=== PATIENT | female | born 1970 | race Caucasian/White ===

== ENCOUNTER 2019-01-06 11:21 | Observation (INO) | payer OTHER ==
[2019-01-06] MEDS ORDERED: VALIUM 10 MG/2 ML SYRINGE IV ONE (11:46)
[2019-01-06] MEDS ORDERED: VALIUM 10 MG/2 ML SYRINGE ONE (11:54)
[2019-01-06] MEDS ORDERED: Sodium Chloride 0.9% 1000 ML 1,000 ML ONE (11:54)
[2019-01-06] MEDS: Sodium Chloride 0.9% 1000 ML 1,000 ML IV SCH ×2 (11:55→23:10)
--- NOTE | 2019-01-06 11:57 | ERPHSYRPT ---
- History of Present Illness Time Seen by Provider: 01/06/19 11:23 Source: patient Exam Limitations: no limitations Patient Subjective Stated Complaint: Shortness of breath intermittent x 6 days Physician History: This's a 48 yr old pt. with known h/o PE, not on any blood thinners who presents to ED with episodes of epigastric chest pain with SOB and palpitations that was first noticed on wednesday01/01/2019 - She states that on wednesday she noticed a rapid heart beat associated with SOB and pt. states she went pale - this lasted a few minutes after which the patient felt fine. 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 - was on coumadin- but was non-compliant with her blood work hence it was discontinued- was not placed on any other blood thinners - reports hysterectomy - also reports episode of diarrhoea 2 nights ago followed by decreased oral intake Timing/Duration: day(s) (), gradual onset Activities at Onset: none Quality: burning Location: central, epigastric Chest Pain Radiation: no radiation Severity of Pain-Max: moderate Severity of Pain-Current: moderate Modifying Factors: Improves With: nothing Nitro Today/Relief: no nitro taken today Aspirin Treatment Today: no aspirin today Associated Symptoms: nausea, shortness of breath, heartburn Prior Chest Pain/Cardiac Workup: no prior chest pain, pulmonary embolism Allergies/Adverse Reactions: cephalexin Allergy (Verified 01/06/19 11:53) cefuroxime axetil [From Ceftin] Adverse Reaction (Verified 01/06/19 11:53) vancomycin Adverse Reaction (Verified 01/06/19 11:53) Home Medications: Carvedilol 12.5 mg [Coreg 12.5 mg] 2 tab PO HS 07/03/15 [History] Oxycodone HCl/Acetaminophen [Percocet 10-325 mg Tablet] 1 each PO Q6H PRN PRN [History] Cyclobenzaprine HCl 10 mg [Flexeril 10 MG] 10 mg PO HS 07/31/15 [History] Duloxetine HCl [Cymbalta] 60 mg PO BID 10/22/15 [History] Hydroxyzine HCl 25 mg [Atarax 25 mg] 1 tab PO HS PRN 01/06/19 [History] Pregabalin [Lyrica 100Mg] 200 mg PO BID 01/06/19 [History] - Review of Systems Constitutional: Fatigue, Weakness Eyes: No Symptoms Ears, Nose, & Throat: No Symptoms Respiratory: Dyspnea, Dyspnea on Exertion (ARANA) Cardiac: Chest Pain Abdominal/Gastrointestinal: Nausea Genitourinary Symptoms: No Symptoms Musculoskeletal: No Symptoms Skin: No Symptoms Neurological: Dizziness Psychological: No Symptoms Endocrine: No Symptoms Hematologic/Lymphatic: No Symptoms Immunological/Allergic: No Symptoms All Other Systems: Reviewed and Negative - Past Medical History Pertinent Past Medical History: No Neurological History: TIA ENT History: No Pertinent History Cardiac History: Hypertension Respiratory History: No Pertinent History Endocrine Medical History: No Pertinent History Musculoskeletal History: Other GI Medical History: Gallbladder Disease, Ulcer History: No Pertinent History Psycho-Social History: Anxiety, Panic Disorder Female Reproductive Disorders: Fibroids Other Medical History: PT. REPORTS SHE MAY HAVE HAD TIAS, PANIC ATTACKS, HTN; PT. REPORTS SHE HAS CP AT TIME THAT HER PCP THINKS IS RELATED TO HTN; PT. REPORTS HAVING C-SPINE AND L-SPINE FUSION IN 2000 - Past Surgical History Past Surgical History: Yes Neuro Surgical History: No Pertinent History Cardiac: No Pertinent History Respiratory: No Pertinent History Gastrointestinal: No Pertinent History Genitourinary: No Pertinent History Musculoskeletal: Orthopedic Surgery Female Surgical History: Hysterectomy Other Surgical History: Back surgery; Neck fracture repair; tonsillectomy; adenoidnectomy - Social History Smoking Status: Former smoker Exposure to second hand smoke: No Drug Use: none - Female History Hx Now: No - Nursing Vital Signs Nursing Vital Signs: Initial Vital Signs Temperature 98.5 F 01/06/19 11:30 Pulse Rate 138 H 01/06/19 11:30 Respiratory Rate 22 01/06/19 11:30 Blood Pressure 129/100 01/06/19 11:30 O2 Sat by Pulse Oximetry 100 01/06/19 11:30 Pain Scale Pain Intensity 2 - Physical Exam General Appearance: mild distress Eye Exam: PERRL/EOMI Ears, Nose, Throat Exam: normal ENT inspection Neck Exam: normal inspection Respiratory Exam: normal breath sounds, lungs clear, airway intact Cardiovascular Exam: normal heart sounds, normal peripheral pulses, tachycardia Gastrointestinal/Abdomen Exam: soft, normal bowel sounds Pelvic Exam: not done Rectal Exam: deferred Back Exam: normal inspection Extremity Exam: normal inspection Neurologic Exam: alert, oriented x 3, cooperative, marine rigger II-XII nml as tested Skin Exam: normal color Lymphatic Exam: No adenopathy SpO2 Interpretation: normal O2 Delivery: Room Air Ordered Tests: Active Orders 24 hr Category Date Time Status Code Status Order ROUTINE Care 01/06/19 15:06 Active EKG-ER Only STAT Care 01/06/19 11:43 Completed IV Care Q6H Care 01/06/19 15:06 Active IV Insertion STAT Care 01/06/19 11:[address] in Observation ROUTINE Care 01/06/19 15:06 Active CHEST 1 VIEW (PORTABLE) Stat Exams 01/06/19 11:44 Completed CHEST WITH CONTRAST [CT] Stat Exams 01/06/19 12:20 Completed ARTERIAL BLOOD GASES Stat Lab 01/06/19 12:14 Completed CBC W DIFF Stat Lab 01/06/19 11:38 Completed CMP Stat Lab 01/06/19 11:38 Completed D-DIMER QUANTITATION Stat Lab 01/06/19 11:38 Completed MAGNESIUM Stat Lab 01/06/19 11:38 Completed NT PRO BNP Stat Lab 01/06/19 11:38 Completed TROPONIN Q3H Lab 01/06/19 11:38 Completed TROPONIN Q3H Lab 01/06/19 14:45 Completed TROPONIN Q3H Lab 01/06/19 18:39 Completed TROPONIN Q3H Lab 01/06/19 20:45 Ordered TROPONIN Q3H Lab 01/06/19 23:45 Ordered Transfer Order Routine Transfer 01/06/19 Completed Medication Summary Generic Name Dose Route Start Last Admin Trade Name Freq PRN Reason Stop Dose Admin Carvedilol 12.5 mg 01/07/19 10:00 Coreg 12.5 Mg PO 02/06/19 09:59 BID ALIREZA Cyclobenzaprine HCl 10 mg 01/06/19 22:00 01/06/19 20:12 Cyclobenzaprine 10 Mg PO 02/05/19 21:59 10 mg HS ALIREZA Administration Duloxetine HCl 60 mg 01/06/19 22:00 01/06/19 20:11 Cymbalta 30 Mg Capsule PO 02/05/19 21:59 60 mg BID ALIREZA Administration Enoxaparin Sodium 40 mg 01/06/19 17:00 01/06/19 17:56 Enoxaparin Sodium SQ 02/05/19 16:59 40 mg DAILY ALIREZA Administration Hydroxyzine HCl 25 mg 01/06/19 16:29 Atarax 25 Mg PO 02/05/19 16:28 HS PRN PRN ANXIETY Sodium Chloride 1,000 mls @ 100 mls/hr 01/06/19 11:45 01/06/19 11:55 Sodium Chloride 0.9% 1000 Ml IV 02/05/19 11:44 100 mls/hr .Q10H ALIREZA Administration Oxycodone/Acetaminophen 1 tab 01/06/19 16:29 Oxycodone-Acetaminophen 10-325 PO 01/11/19 16:28 Q6H PRN PRN PAIN Pregabalin 200 mg 01/06/19 22:00 01/06/19 20:12 Lyrica 100mg PO 02/05/19 21:59 200 mg BID ALIREZA Administration Discontinued Medications Generic Name Dose Route Start Last Admin Trade Name Freq PRN Reason Stop Dose Admin Carvedilol 25 mg 01/06/19 22:00 01/06/19 20:11 Coreg 12.5 Mg PO 02/05/19 21:59 25 mg HS ALIREZA Administration Diazepam 5 mg 01/06/19 11:46 01/06/19 11:56 Valium 10 Mg/2 Ml Syringe IV 01/06/19 11:47 5 mg STAT ONE Administration Diazepam Confirm 01/06/19 11:54 Valium 10 Mg/2 Ml Syringe Administered 01/06/19 11:55 Dose 10 mg .ROUTE .STK-MED ONE Sodium Chloride Confirm 01/06/19 11:54 Sodium Chloride 0.9% 1000 Ml Administered 01/06/19 11:55 Dose 1,000 mls @ ud .ROUTE .STK-MED ONE Ondansetron HCl 4 mg 01/06/19 12:21 01/06/19 12:27 Zofran 4 Mg/2 Ml Vial IV 01/06/19 12:22 4 mg STAT ONE Administration Ondansetron HCl Confirm 01/06/19 12:26 Zofran 4 Mg/2 Ml Vial Administered 01/06/19 12:27 Dose 4 mg .ROUTE .STK-MED ONE Lab/Rad Data: Laboratory Result Diagrams 01/06/19 11:38 01/06/19 11:38 Laboratory Results 01/06/19 01/06/19 01/06/19 Range/Units 14:45 12:14 11:38 WBC (4.0-10.5) K/mm3 RBC (4.1-5.4) M/mm3 Hgb (12.0-16.0) gm/dl Hct (35-47) % MCV (78-100) fl MCH (26-32) pg MCHC (32-36) g/dl RDW (11.5-14.0) % Plt Count (150-450) K/mm3 MPV (6-9.5) fl Gran % (36.0-66.0) % Eos # (Auto) (0-0.5) Absolute Lymphs (auto) (1.0-4.6) Absolute Monos (auto) (0.0-1.3) Lymphocytes % (24.0-44.0) % Monocytes % (0.0-12.0) % Eosinophils % (0.00-5.0) % Basophils % (0.0-0.4) % Absolute Granulocytes (1.4-6.9) Basophils # (0-0.4) D-Dimer (215-500) ng/mL Puncture Site LEFT RADIAL pCO2 38 (35-45) mmHg pO2 70 L (75-100) mmHg Base Excess -1.0 (-2.0-2.0) O2 Saturation 93.8 L (94-100) g/dF ABG pH 7.40 (7.35-7.45) ABG HCO3 23.5 (22-28) ABG O2 Sat (Measured) 96.9 (95-100) % Sundeep Test YES A-a Gradient 32 a/A Ratio 0.69 Hemoglobin 16.3 Carboxyhemoglobin 2.6 (0.0-6.9) % THgb Methemoglobin 0.7 L (1.4-1.5) % Temperature 37.0 C POC O2 Flow Rate 21 % Sodium (137-145) mmol/L Potassium 4.0 (3.5-5.1) mmol/L Chloride (98-107) mmol/L Carbon Dioxide (22-30) mmol/L Anion Gap (5-15) MEQ/L BUN (7-17) mg/dL Creatinine (0.52-1.04) mg/dL Estimated GFR ML/MIN Glucose (74-106) mg/dL Calcium (8.4-10.2) mg/dL Magnesium (1.6-2.3) mg/dL Total Bilirubin (0.2-1.3) mg/dL AST (14-36) U/L ALT (0-35) U/L Alkaline Phosphatase (38-126) U/L Troponin I < 0.012 < 0.012 (0.000-0.034) ng/mL NT-Pro-B Natriuret Pep (0-450) pg/mL Serum Total Protein (6.3-8.2) g/dL Albumin (3.5-5.0) g/dL 01/06/19 01/06/19 01/06/19 Range/Units 11:38 11:38 11:38 WBC 8.3 (4.0-10.5) K/mm3 RBC 6.06 H (4.1-5.4) M/mm3 Hgb 16.4 H (12.0-16.0) gm/dl Hct 53.3 H (35-47) % MCV 88.0 (78-100) fl MCH 27.0 (26-32) pg MCHC 30.8 L (32-36) g/dl RDW 16.6 H (11.5-14.0) % Plt Count 326 (150-450) K/mm3 MPV 10.2 H (6-9.5) fl Gran % 49.0 (36.0-66.0) % Eos # (Auto) 0.22 (0-0.5) Absolute Lymphs (auto) 3.20 (1.0-4.6) Absolute Monos (auto) 0.76 (0.0-1.3) Lymphocytes % 38.6 (24.0-44.0) % Monocytes % 9.2 (0.0-12.0) % Eosinophils % 2.7 (0.00-5.0) % Basophils % 0.5 (0.0-0.4) % Absolute Granulocytes 4.06 (1.4-6.9) Basophils # 0.04 (0-0.4) D-Dimer 2633 H* (215-500) ng/mL Puncture Site pCO2 (35-45) mmHg pO2 (75-100) mmHg Base Excess (-2.0-2.0) O2 Saturation (94-100) g/dF ABG pH (7.35-7.45) ABG HCO3 (22-28) ABG O2 Sat (Measured) (95-100) % Sundeep Test A-a Gradient a/A Ratio Hemoglobin Carboxyhemoglobin (0.0-6.9) % THgb Methemoglobin (1.4-1.5) % Temperature C POC O2 Flow Rate % Sodium 139 (137-145) mmol/L Potassium 4.1 (3.5-5.1) mmol/L Chloride 97 L (98-107) mmol/L Carbon Dioxide 25 (22-30) mmol/L Anion Gap 20.9 H (5-15) MEQ/L BUN 16 (7-17) mg/dL Creatinine 1.10 H (0.52-1.04) mg/dL Estimated GFR 56.8 ML/MIN Glucose 197 H (74-106) mg/dL Calcium 10.1 (8.4-10.2) mg/dL Magnesium 1.6 (1.6-2.3) mg/dL Total Bilirubin 0.80 (0.2-1.3) mg/dL AST 62 H (14-36) U/L ALT 73 H (0-35) U/L Alkaline Phosphatase 132 H (38-126) U/L Troponin I (0.000-0.034) ng/mL NT-Pro-B Natriuret Pep 27.4 (0-450) pg/mL Serum Total Protein 9.2 H (6.3-8.2) g/dL Albumin 4.7 (3.5-5.0) g/dL - Progress Progress Note: 01/06/19 20:45 pt. seen and examined cbc, - wnl d-dimer elevated at 2633- CT chest with contrast negative for PE ABg WNL CMP mild elevation of Cr 1.10 and elevated liver enzymes- baseline unknown trops negative BNP WNL CXR WNL Discussed with - pt. admitted for SOB with exertion, WARREN, elevated d- dimer Discussed with Dr.: Tung Will see patient in: hospital (observation) - Departure Departure Disposition: Observation Clinical Impression: SOB (shortness of breath), WARREN (acute kidney injury), Elevated d-dimer Condition: Fair Critical Care Time: Yes Critical Care Time(excluding separately billable procedures): Critical 30-74 mins (45 min)
[2019-01-06 11:59] LABS: Absolute Neutrophil Ct (ANC) 4.06 (1.4-6.9); BASOPHIL % 0.5 % (0.0-0.4); Basophil (Absolute #) 0.04 (0-0.4); Eosinophil % 2.7 % (0.00-5.0); Eosinophil (Absolute #) 0.22 (0-0.5); Hematocrit 53.3 % (35-47); Hemoglobin 16.4 gm/dl (12.0-16.0); Lymphocytes % 38.6 % (24.0-44.0); Mean Corpuscular Hgb Concent. 30.8 g/dl (32-36); Mean Platelet Volume 10.2 fl (6-9.5); Monocyte (Absolute #) 0.76 (0.0-1.3); Monocytes % 9.2 % (0.0-12.0); Platelet Count 326 K/mm3 (150-450); Red Blood Count 6.06 M/mm3 (4.1-5.4); Red Cell Distribution Width 16.6 % (11.5-14.0); White Blood Count 8.3 K/mm3 (4.0-10.5)
--- NOTE | 2019-01-06 12:11 | XRAY ---
Indication: Short of breath. Comparison: July 03, 2015. Portable chest remains clear again with incidental right lower lobe nodule favored to be benign given stability over the years. Heart and mediastinal structures within normal limits. Bony thorax intact again with spinal stimulator leads terminating mid thoracic spine. Impression: Stable nonacute chest with chronic features.
[2019-01-06 12:17] LABS: A-aADO2 32; ABG HEMOGLOBIN 16.3; ABG SITE LEFT RADIAL; ALLEN TEST OK? YES; ARTERIAL BLD GAS O2 SATURATION 96.9 % (95-100); ARTERIAL BLOOD GAS FIO2 21 %; ARTERIAL BLOOD GAS PCO2 38 mmHg (35-45); ARTERIAL BLOOD GAS PO2 70 mmHg (75-100); CARBOXYHEMOGLOBIN 2.6 % THgb (0.0-6.9); HCO3- 23.5 (22-28); HGB O2 SAT 93.8 g/dF (94-100); Methhemoglobin 0.7 % (1.4-1.5); paO2 pAO1 0.69
[2019-01-06 12:21] LABS: ALBUMIN 4.7 g/dL (3.5-5.0); ANION GAP 20.9 MEQ/L (5-15); BILIRUBIN,TOTAL 0.8 mg/dL (0.2-1.3); Calcium 10.1 mg/dL (8.4-10.2); Creatinine 1 1.1 mg/dL (0.52-1.04); MAGNESIUM 1.6 mg/dL (1.6-2.3); NT PRO BNP 27.4 pg/mL (0-450); Potassium 4.1 mmol/L (3.5-5.1); Total Protein 9.2 g/dL (6.3-8.2)
[2019-01-06] MEDS ORDERED: Zofran 4 MG/2 ML VIAL IV ONE (12:21)
[2019-01-06] MEDS ORDERED: Zofran 4 MG/2 ML VIAL ONE (12:26)
--- NOTE | 2019-01-06 13:31 | XRAY ---
Indication: Chest pain. Elevated d-dimer. History PE. Multiple contiguous axial images obtained through the chest using 100 cc Isovue 370 contrast and PE protocol. Comparison: October 26, 2013. There is adequate opacification of the pulmonary arteries to include the lobar and segmental branches. Again no filling defect or pulmonary embolus. Heart is not enlarged. Aorta is normal in course and caliber. No pathologic mediastinal/hilar lymphadenopathy. Lungs are inflated again with minimal left base fibrosis/scarring. Previous right lower lobe nodule is now partially calcified favoring granulomatous etiology. New 5-6 mm left upper lobe noncalcified nodule. No infiltrate or effusion. Bony thorax intact again with spinal stimulator leads terminating T7 level. Limited upper abdomen again demonstrates fatty liver and 13 cm splenomegaly. Interval cholecystectomy. Impression: 1. Again negative pulmonary embolus. No acute cardiopulmonary abnormalities. 2. Incidental right lower lobe calcified granuloma. New left upper lobe noncalcified micro-nodule possibly granulomatous. 3. Stable fatty liver and splenomegaly. CTDI 22.02
[2019-01-06] MEDS ORDERED: ATARAX 25 MG PO PRN (16:29)
[2019-01-06] MEDS: ENOXAPARIN SODIUM SQ SCH (17:56)
[2019-01-06] MEDS: Cymbalta 30 MG Capsule PO SCH (20:11)
[2019-01-06] MEDS: Cyclobenzaprine 10 MG PO SCH (20:12)
[2019-01-06] MEDS: LYRICA 100MG PO SCH (20:12)
--- NOTE | 2019-01-06 20:39 | XRAY ---
Indication: Elevated d-dimer. Positive right Homans sign. Two-dimensional sonogram and color Doppler imaging of the major venous vessels of the left and right leg was performed. Comparison: None No thrombus seen in the examined deep venous vessels of the left and right leg including greater saphenous vein. Veins demonstrate normal compressibility. Venous waveforms are normal with and without augmentation. Impression: Left and right legs negative for DVT. Comment: Preliminary report was given.
[2019-01-06] MEDS ORDERED: NON-FORMULARY ITEM (Duloxetine Hcl [Cymbalta] 60 MG) PO SCH (22:00)
[2019-01-06] MEDS ORDERED: COREG 12.5 MG PO SCH (22:00)
[2019-01-07] MEDS: OXYCODONE-ACETAMINOPHEN 10-325 PO PRN ×2 (05:01→21:31)
[2019-01-07] MEDS: Sodium Chloride 0.9% 1000 ML 1,000 ML IV SCH ×2 (09:15→19:18)
[2019-01-07] MEDS: Cymbalta 30 MG Capsule PO SCH ×2 (09:17→21:23)
[2019-01-07] MEDS: LYRICA 100MG PO SCH ×2 (09:17→21:23)
[2019-01-07] MEDS: ENOXAPARIN SODIUM SQ SCH (09:17)
[2019-01-07] MEDS: COREG 12.5 MG PO SCH ×2 (11:26→21:29)
[2019-01-07 13:04] LABS: Absolute Neutrophil Ct (ANC) 2.55 (1.4-6.9); BASOPHIL % 0.3 % (0.0-0.4); Basophil (Absolute #) 0.02 (0-0.4); Eosinophil (Absolute #) 0.25 (0-0.5); Hemoglobin 14.6 gm/dl (12.0-16.0); Lymphocyte (Absolute #) 2.85 (1.0-4.6); Lymphocytes % 45.1 % (24.0-44.0); Mean Cell Volume 89.6 fl (78-100); Mean Corpuscular Hemoglobin 27.2 pg (26-32); Mean Corpuscular Hgb Concent. 30.4 g/dl (32-36); Monocyte (Absolute #) 0.65 (0.0-1.3); Monocytes % 10.3 % (0.0-12.0); Neutrophil % 40.3 % (36.0-66.0); Platelet Count 275 K/mm3 (150-450); Red Blood Count 5.36 M/mm3 (4.1-5.4); Red Cell Distribution Width 15.7 % (11.5-14.0); White Blood Count 6.3 K/mm3 (4.0-10.5)
[2019-01-07 13:42] LABS: ALBUMIN 4.1 g/dL (3.5-5.0); ALKALINE PHOSPHATASE 109 U/L (38-126); ANION GAP 10.8 MEQ/L (5-15); BLOOD UREA NITROGEN 11 mg/dL (7-17); CHLORIDE 99 mmol/L (98-107); Calcium 9.3 mg/dL (8.4-10.2); Carbon Dioxide 33 mmol/L (22-30); Creatinine 1 0.69 mg/dL (0.52-1.04); Glucose 89 mg/dL (74-106); SGOT/AST 69 U/L (14-36); SGPT/ALT 74 U/L (0-35); SODIUM 139 mmol/L (137-145)
[2019-01-07] MEDS: Cyclobenzaprine 10 MG PO SCH (21:23)
[2019-01-08] MEDS: Sodium Chloride 0.9% 1000 ML 1,000 ML IV SCH ×3 (05:10→18:37)
[2019-01-08] MEDS: OXYCODONE-ACETAMINOPHEN 10-325 PO PRN ×2 (08:28→21:14)
[2019-01-08] MEDS: LYRICA 100MG PO SCH ×2 (09:43→21:14)
[2019-01-08] MEDS: Cymbalta 30 MG Capsule PO SCH ×2 (09:43→21:14)
[2019-01-08] MEDS: ENOXAPARIN SODIUM SQ SCH ×2 (09:44→23:29)
[2019-01-08] MEDS: COREG 12.5 MG PO SCH ×2 (09:44→21:22)
[2019-01-08] MEDS ORDERED: PHARMACY DOSING REQUEST MC ONE (11:42)
--- NOTE | 2019-01-08 11:44 | PCM.NOTE ---
Date and Time: 01/08/19 1138 Subjective Assessment: When I saw the patient at 11:10 this AM, she reports she had 2 minutes of chest pain 45 minutes ago that she did not tell her nurse about. She reports it was in the center of her chest and she had dyspnea when it resolved and also cold sweats with the chest pain. She reported hx of 3 PE's in the past but off of anticoagulation because not able to check INR's regularly. She reported to her night nurse that this feels like what she feels like when she has a PE. She reported no hx of hypercoaguable work up and I considered ordering this but can' t be done if she is on blood thinner and she has been getting lovenox for DVT prophylaxis. She reports remote hx of bleeding ulcers but states no recent problems although sometimes she will have some abdominal pain and wonders if it might be coming back. She continues to have shortness of breath with any exertion and overall fatigue since last Wednesday. Patient also reports frequent headaches which she usually takes aspirin or NSAIDS for and would not be able to do this while on anticoaguation. - Review of Systems Constitutional: Fatigue Eyes: No Symptoms Ears, Nose, & Throat: No Symptoms Respiratory: Short Of Breath Cardiac: Chest Pain Abdominal/Gastrointestinal: No Symptoms Genitourinary Symptoms: No Symptoms Musculoskeletal: No Symptoms Objective Exam General Appearance: no apparent distress, other (morbidly obese) Neurologic Exam: alert, cooperative, normal mood/affect Skin Exam: normal color, warm, dry, No rash Respiratory Exam: normal breath sounds, lungs clear, No crackles/rales, No rhonchi, No wheezing Cardiovascular Exam: regular rate/rhythm, normal heart sounds, No murmur, No friction rub, No gallop Gastrointestinal/Abdomen Exam: soft, normal bowel sounds, No tenderness, No distention Extremity Exam: normal inspection, other (no c/c/e) OBJECTIVE DATA Vital Signs: Vital Signs - 24 hr Temp Pulse Resp BP Pulse Ox 01/08/19 08:00 97.8 F 84 18 119/58 91 L 01/08/19 04:25 98.3 F 81 18 96/53 95 01/08/19 00:03 98.0 F 83 20 112/56 93 L 01/07/19 20:15 97.9 F 88 20 122/58 92 L 01/07/19 16:00 97.5 F 94 H 18 148/72 97 01/07/19 12:00 98.2 F 95 H 18 149/86 95 Pain Assessment - Last Documented Pain Intensity 6 [facility] Intake and Output: Intake & Output 01/06/19 01/07/19 01/08/19 01/09/19 06:59 06:59 06:59 06:59 Intake Total 2656 3146 Output Total 1900 2500 900 Balance 756 646 -900 Weight 153.6 kg Lab Results: Lab Results-Last 24 Hours 01/07/19 01/07/19 Range/Units 12:55 12:55 WBC 6.3 (4.0-10.5) K/mm3 RBC 5.36 (4.1-5.4) M/mm3 Hgb 14.6 (12.0-16.0) gm/dl Hct 48.0 H (35-47) % MCV 89.6 (78-100) fl MCH 27.2 (26-32) pg MCHC 30.4 L (32-36) g/dl RDW 15.7 H (11.5-14.0) % Plt Count 275 (150-450) K/mm3 MPV 10.0 H (6-9.5) fl Gran % 40.3 (36.0-66.0) % Eos # (Auto) 0.25 (0-0.5) Absolute Lymphs (auto) 2.85 (1.0-4.6) Absolute Monos (auto) 0.65 (0.0-1.3) Lymphocytes % 45.1 H (24.0-44.0) % Monocytes % 10.3 (0.0-12.0) % Eosinophils % 4.0 (0.00-5.0) % Basophils % 0.3 (0.0-0.4) % Absolute Granulocytes 2.55 (1.4-6.9) Basophils # 0.02 (0-0.4) Sodium 139 (137-145) mmol/L Potassium 4.0 (3.5-5.1) mmol/L Chloride 99 (98-107) mmol/L Carbon Dioxide 33 H (22-30) mmol/L Anion Gap 10.8 (5-15) MEQ/L BUN 11 (7-17) mg/dL Creatinine 0.69 (0.52-1.04) mg/dL Estimated GFR > 60.0 ML/MIN Glucose 89 (74-106) mg/dL Calcium 9.3 (8.4-10.2) mg/dL Total Bilirubin 0.70 (0.2-1.3) mg/dL AST 69 H (14-36) U/L ALT 74 H (0-35) U/L Alkaline Phosphatase 109 (38-126) U/L Serum Total Protein 8.0 (6.3-8.2) g/dL Albumin 4.1 (3.5-5.0) g/dL Radiology Exams: Radiology Procedures Category Date Time Status CHEST 1 VIEW (PORTABLE) Stat Exams 01/06/19 11:44 Completed CHEST WITH CONTRAST [CT] Stat Exams 01/06/19 12:20 Completed ECHO W/2D AND DOPPLER [US] Routine Exams 01/08/19 Ordered VENOUS BILATERAL EXTREMITY [US] Stat Exams 01/06/19 17:51 Completed Assessment/Plan (1) Chest pain Current Visit: Yes Status: Acute Assessment & Plan: Ruled out earlier for acute PR but chest pain again. Will check troponin now and EKG now and another troponin in 4 hours. Continue with telemetry. Cardiology consult in AM and Echo ordered for AM. Code(s): R07.9 - CHEST PAIN, UNSPECIFIED (2) Dyspnea on exertion Current Visit: Yes Status: Acute Assessment & Plan: Studies were neg for acute PE but could have chronic PE causing dyspnea so will fully anticoagulate with lovenox until she can have further evaluation by ent nurse and regular doctor. Discussed doing hypercoaguable work up but unable to draw this now as she is on lovenox. Will use lovenox so she and her primary doctor can discuss best option for anticoagulation on Wednesday. Code(s): R06.09 - OTHER FORMS OF DYSPNEA (3) History of pulmonary embolism Current Visit: Yes Status: Acute Code(s): Z86.711 - PERSONAL HISTORY OF PULMONARY EMBOLISM (4) Chronic pain syndrome Current Visit: Yes Status: Acute Code(s): G89.4 - CHRONIC PAIN SYNDROME (5) Chronic pain associated with significant psychosocial dysfunction Current Visit: No Status: Chronic Assessment & Plan: On home medication. Code(s): G89.4 - CHRONIC PAIN SYNDROME
[2019-01-08] MEDS ORDERED: ENOXAPARIN SODIUM SQ SCH (12:00)
[2019-01-08] MEDS: Cyclobenzaprine 10 MG PO SCH (21:14)
[2019-01-09] MEDS: Sodium Chloride 0.9% 1000 ML 1,000 ML IV SCH (05:02)
[2019-01-09] MEDS: COREG 12.5 MG PO SCH (08:39)
[2019-01-09] MEDS: ENOXAPARIN SODIUM SQ SCH (08:39)
[2019-01-09] MEDS: LYRICA 100MG PO SCH (08:39)
[2019-01-09] MEDS: Cymbalta 30 MG Capsule PO SCH (08:39)
[2019-01-09] MEDS: OXYCODONE-ACETAMINOPHEN 10-325 PO PRN (08:51)
--- NOTE | 2019-01-09 09:06 | HP ---
HISTORY OF PRESENT ILLNESS: This is a 48 year-old patient of Dr. Sierra's who reports she presented to his office yesterday and then was directed to go to the emergency department. She reports last Wednesday she felt like she had a very hard, fast heartbeat resulting in dyspnea and almost passing out. She reports that she felt better after sitting down, this happened another time on Wednesday. She continued to have decreased energy throughout the week with these episodes and dyspnea with exertion since Wednesday that is worse than her baseline. She reports due to her weight she has some dyspnea but it was worse. She reports a history of blood clots but not on blood thinners as she is noncompliant. She got the blood thinners a couple of years under the direction of Dr. Sierra and she did not come in to have her international normalized ratio checked due to social situation. She reports a pulmonary embolism in 2000 after back surgery and at that time not going home on a blood thinner. She reports 12 to 13 years ago having a blood clot three months after hysterectomy and she thinks one other time. She has not seen a solution director. The patient denies any heart problems but states her mother has [id number] and she was evaluated for this eleven years ago and found not to have it at that time having echocardiogram that was normal. She reports that she is on Coreg only at nighttime because she thought it was making her sleepy during the day. She has been on this a long time. She reports risk for her blood pressure and not her heart rate. She states her heart rate has always been low since she was a teenager. She denies any history of asthma or emphysema. She reports she smoked for seven years when she was 18 to 24 years old. Yesterday evening the nurse called me reporting a heart rate of 150 although it is not currently documented in the chart and palpitations. The patient reports she has not had further episodes like this but has not been walking very much here in the hospital. REVIEW OF SYSTEMS: Noncontributory. PAST MEDICAL HISTORY: Hypertension, anxiety, chronic pain. PAST SURGICAL HISTORY: Noncontributory. SOCIAL HISTORY: She reports she has a special needs child at home. No current tobacco use. No alcohol use. FAMILY HISTORY: Her mother had [id number] as mentioned previously. PHYSICAL EXAMINATION: VITAL SIGNS: Temperature current 97.9F, heart rate 75, respiratory rate 18, blood pressure 110/65, weight 153.6 kg. Oxygen saturation 92% on room air. GENERAL: The patient is a morbidly obese lady sitting up in her chair in no acute distress. She is pleasant and talkative. CVS: She has a regular rate and rhythm. No murmurs, gallops or rubs are appreciated. CHEST: Clear to auscultation bilaterally. No crackles or wheezes. ABDOMEN: Soft, nontender, nondistended with normal bowel sounds. EXTREMITIES: No clubbing, cyanosis or edema. SKIN: Warm, dry and intact. LABORATORY DATA AND TESTS: CBC within normal limits today. Her D-dimer was elevated in the emergency room at 2,633. She had VQ scan that was negative for pulmonary embolism. Venous Doppler's were negative. Liver function tests mildly elevated. Creatinine 1.1. ASSESSMENT AND PLAN: 1) PALPITATIONS: She is currently on telemetry. Again, there was no strip of the reported heart rate to 150. Her heart rate has improved since admission. Her case was discussed with Dr. Jeffy Lofton who is covering for Dr. Gates and she was given Coreg 25 mg last but we changed that to 12.5 mg b.i.d. to see if that helps control the palpitations during the day better. 2) DYSPNEA WITH EXERTION: She will most likely need further work up as an outpatient as well as to see a machine egg washer either telemedicine or face to face. She was agreeable with staying one more day but she will want to go home tomorrow. 3) CHRONIC PAIN: She was continued on her home medications. 4) HISTORY OF BLOOD CLOTS: She again will need some further work up and have a long discussion with her primary care doctor whether or not she needs to be put back on blood thinners to prevent any further problems. She is currently on Lovenox 40 mg subcutaneously daily to prevent deep venous thrombosis as ordered by her primary care doctor, Dr. Sierra.
--- NOTE | 2019-01-09 11:52 | PCM.DS ---
Discharge Summary Date of Admission: 01/06/19 14:54 Admitting Physician: EUSEBIO DEL CID Consults: Consults on Case 01/06/19 20:08 Consult Cardiology ROUTINE 01/08/19 11:18 Consult Cardiology ROUTINE Primary Care Provider: EUSEBIO DEL CID Allergies Allergies cephalexin Allergy (Verified 01/06/19 11:53) cefuroxime axetil [From Ceftin] Adverse Reaction (Verified 01/06/19 11:53) vancomycin Adverse Reaction (Verified 01/06/19 11:53) Hospital Summary - Hospital Course Hospital Course: Chief Complaint Diagnosis chest pain Allergies Allergy/AdvReac Type Severity Reaction Status Date / Time cephalexin Allergy Verified 01/06/19 11:53 cefuroxime axetil AdvReac Verified 01/06/19 11:53 [From Ceftin] vancomycin AdvReac Verified 01/06/19 11:53 Vital Signs (Last 24 hours) Temp Pulse Resp BP Pulse Ox 01/09/19 08:00 97.4 F 82 16 127/59 92 L 01/09/19 04:15 97.5 F 81 19 126/89 96 01/08/19 23:27 98.0 F 80 20 109/57 94 L 01/08/19 20:11 98.4 F 84 18 117/55 93 L 01/08/19 16:00 98.1 F 79 18 129/59 97 01/08/19 12:00 98.1 F 79 18 129/64 95 Home Medications Medication Instructions Recorded Confirmed Last Taken Type Hydroxyzine HCl 25 mg [Atarax 1 tab PO HS PRN 01/06/19 01/06/19 Unknown History 25 mg] Pregabalin [Lyrica 100Mg] 200 mg PO BID 01/06/19 01/06/19 01/06/19 History Current Medications Generic Name Dose Route Start Last Admin Trade Name Freq PRN Reason Stop Dose Admin Carvedilol 12.5 mg 01/07/19 10:00 01/09/19 08:39 Coreg 12.5 Mg PO 02/06/19 09:59 12.5 mg BID ALIREZA Administration Cyclobenzaprine HCl 10 mg 01/06/19 22:00 01/08/19 21:14 Cyclobenzaprine 10 Mg PO 02/05/19 21:59 10 mg HS ALIREZA Administration Duloxetine HCl 60 mg 01/06/19 22:00 01/09/19 08:39 Cymbalta 30 Mg Capsule PO 02/05/19 21:59 60 mg BID ALIREZA Administration Enoxaparin Sodium 150 mg 01/08/19 22:00 01/09/19 08:39 Enoxaparin Sodium SQ 02/07/19 21:59 150 mg BID ALIREZA Administration Hydroxyzine HCl 25 mg 01/06/19 16:29 Atarax 25 Mg PO 02/05/19 16:28 HS PRN PRN ANXIETY Sodium Chloride 1,000 mls @ 100 mls/hr 01/06/19 11:45 01/09/19 05:02 Sodium Chloride 0.9% 1000 Ml IV 02/05/19 11:44 100 mls/hr .Q10H ALIREZA Administration Oxycodone/Acetaminophen 1 tab 01/06/19 16:29 01/09/19 08:51 Oxycodone-Acetaminophen 10-325 PO 01/11/19 16:28 1 tab Q6H PRN PRN Administration PAIN Pregabalin 200 mg 01/06/19 22:00 01/09/19 08:39 Lyrica 100mg PO 02/05/19 21:59 200 mg BID ALIREZA Administration Discontinued Medications Generic Name Dose Route Start Last Admin Trade Name Freq PRN Reason Stop Dose Admin Carvedilol 25 mg 01/06/19 22:00 01/06/19 20:11 Coreg 12.5 Mg PO 02/05/19 21:59 25 mg HS ALIREZA Administration Diazepam 5 mg 01/06/19 11:46 01/06/19 11:56 Valium 10 Mg/2 Ml Syringe IV 01/06/19 11:47 5 mg STAT ONE Administration Diazepam Confirm 01/06/19 11:54 Valium 10 Mg/2 Ml Syringe Administered 01/06/19 11:55 Dose 10 mg .ROUTE .STK-MED ONE Enoxaparin Sodium 40 mg 01/06/19 17:00 01/08/19 09:44 Enoxaparin Sodium SQ 02/05/19 16:59 40 mg DAILY ALIREZA Administration Enoxaparin Sodium 100 mg 01/08/19 12:00 01/08/19 12:33 Enoxaparin Sodium SQ 01/08/19 12:01 100 mg 1200 ALIREZA Administration Sodium Chloride Confirm 01/06/19 11:54 Sodium Chloride 0.9% 1000 Ml Administered 01/06/19 11:55 Dose 1,000 mls @ .ROUTE .STK-MED ONE Non-Formulary Medication 1 each 01/08/19 11:42 01/08/19 12:36 Pharmacy Dosing Request MC 01/08/19 11:43 1 each STAT ONE Administration Ondansetron HCl 4 mg 01/06/19 12:21 01/06/19 12:27 Zofran 4 Mg/2 Ml Vial IV 01/06/19 12:22 4 mg STAT ONE Administration Ondansetron HCl Confirm 01/06/19 12:26 Zofran 4 Mg/2 Ml Vial Administered 01/06/19 12:27 Dose 4 mg .ROUTE .STK-MED ONE Intake & Output (Last 24 hours) 01/06/19 01/07/19 01/08/19 01/09/19 11:59 11:59 11:59 11:59 Intake Total 2656 3146 3435 Output Total 1900 3400 2500 Balance 756 -254 935 Weight 149.685 kg 153.6 kg Laboratory Results (Last 24 hours) 01/09/19 01/08/19 01/08/19 10:25 15:30 11:38 Troponin I < 0.012 < 0.012 TSH 3rd Generation 1.380 Orders (Last 24 hours) Category Date Time Status Consult Cardiology ROUTINE Cons 01/08/19 11:18 Active ECHO W/2D AND DOPPLER [US] Routine Exams 01/09/19 Ordered LIPID PROFILE AM.LAB Lab 01/10/19 04:00 Ordered TROPONIN Routine Lab 01/08/19 15:30 Completed TROPONIN Stat Lab 01/08/19 11:38 Completed TSH [TSH, 3RD Generation] Urgent Lab 01/09/19 10:25 Completed Enoxaparin Sodium [Enoxaparin Sodium] Med 01/08/19 12:00 Discontinued 100 mg SQ 1200 Enoxaparin Sodium [Enoxaparin Sodium] Med 01/08/19 22:00 Active 150 mg SQ BID Pharmacy Dosing Request Med 01/08/19 11:42 Discontinued 1 each STAT ONE EKG STAT RT 01/08/19 11:18 Completed Patient Care Notes (Last 24 hours) 01/09/19 09:35 (created 01/09/19 09:44) Nursing Note by Joseph Rayo Dr here to see pt Initialized on 01/09/19 09:44 - END OF NOTE - Vitals & Intake/Output Vital Signs: Vital Signs Temperature 97.4 F 01/09/19 08:00 Pulse Rate 82 01/09/19 08:00 Respiratory Rate 16 01/09/19 08:00 Blood Pressure 127/59 01/09/19 08:00 O2 Sat by Pulse Oximetry 92 L 01/09/19 08:00 Intake & Output: Intake & Output 01/06/19 01/07/19 01/08/19 01/09/19 11:59 11:59 11:59 11:59 Intake Total 2656 3146 3435 Output Total 1900 3400 2500 Balance 756 -254 935 Weight 149.685 kg 153.6 kg - Lab Result Diagrams: 01/07/19 12:55 01/07/19 12:55 Lab Results-Last 24 Hrs: Lab Results-Last 24 Hours 01/08/19 01/08/19 01/09/19 Range/Units 11:38 15:30 10:25 Troponin I < 0.012 < 0.012 (0.000-0.034) ng/mL TSH 3rd Generation 1.380 (0.47-4.68) mIU/L - Radiology Exams Ordered Rad Exams-Entire Visit: Radiology Procedures Category Date Time Status ECHO W/2D AND DOPPLER [US] Routine Exams 01/09/19 Ordered - Procedures and Test Procedures and Tests throughout Hospitalization: Therapy Orders & Screens 01/08/19 11:18 EKG STAT Comment: Diagnosis: chest pain Discharge Exam General Appearance: no apparent distress, alert Neurologic Exam: alert, oriented x 3, cooperative, normal mood/affect, nml cerebellar function, sensation nml, No motor deficits Eye Exam: PERRL, EOMI, eyes nml inspection Ears, Nose, Throat Exam: normal ENT inspection, pharynx normal, moist mucous membranes Neck Exam: normal inspection, non-tender, supple, full range of motion Respiratory Exam: normal breath sounds, lungs clear, No respiratory distress Cardiovascular Exam: regular rate/rhythm, normal heart sounds Gastrointestinal/Abdomen Exam: soft, No tenderness, No mass Pelvic Exam: deferred Rectal Exam: deferred Back Exam: normal inspection, normal range of motion, No CVA tenderness, No vertebral tenderness Extremity Exam: normal inspection, normal range of motion Skin Exam: normal color, warm, dry Final Diagnosis/Problem List - Final Discharge Diagnosis/Problem (1) Dyspnea on exertion Current Visit: Yes Status: Resolved Code(s): R06.09 - OTHER FORMS OF DYSPNEA (2) Elevated d-dimer Current Visit: Yes Status: Resolved Code(s): R79.89 - OTHER SPECIFIED ABNORMAL FINDINGS OF BLOOD CHEMISTRY (3) History of pulmonary embolism Current Visit: Yes Status: Chronic Code(s): Z86.711 - PERSONAL HISTORY OF PULMONARY EMBOLISM (4) SOB (shortness of breath) Current Visit: Yes Status: Acute Code(s): R06.02 - SHORTNESS OF BREATH - Discharge Discharge Date: 01/09/19 Disposition: Home, Self-Care Condition: Stable Prescriptions: No Action Carvedilol 12.5 mg [Coreg 12.5 mg] 2 tab PO HS Oxycodone HCl/Acetaminophen [Percocet 10-325 mg Tablet] 1 each PO Q6H PRN PRN PRN Reason: Pain Cyclobenzaprine HCl 10 mg [Flexeril 10 MG] 10 mg PO HS Duloxetine HCl [Cymbalta] 60 mg PO BID Hydroxyzine HCl 25 mg [Atarax 25 mg] 1 tab PO HS PRN PRN Reason: Anxiety Pregabalin [Lyrica 100Mg] 200 mg PO BID Follow up with: EUSEBIO DEL CID MD [Primary Care Provider] - 1 Week
--- NOTE | 2019-01-09 13:33 | CONS ---
CONSULT DATE: 01/09/2019 BRIEF HISTORY: This is a 48 year-old female who was seen because of palpitations, chest pain and shortness of breath. Her symptoms started last week while she was on her way to [place]. She started to have some bouts of palpitations describing it as the heart beating so hard. She felt a little bit dizzy and had to sit down. The symptoms has since improved. She just got week. It occurred the same day as she was getting out of [place]onism. Over the next ensuing days she has felt fatigued and having some chest pains which she described as sharp and was felt in the center of the chest not consistently related to effort. 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 She eventually ended up in [facility]. Her troponin I is normal. Her EKG did not show any significant ST-T displacement. Rhythm strip did not show any significant cardiac arrhythmia. The patient has never had a myocardial infarction. She has history of pulmonary embolism and was on Coumadin for a while but due to noncompliance this was stopped about two years ago. Her CT scan in this hospital was negative for pulmonary embolism and so were the venous Doppler studies. CARDIAC RISK FACTORS: Negative for diabetes. She has history of hypertension. She smoked for about five years but quit about 20 years ago. No known hyperlipidemia. FAMILY HISTORY: Positive coronary artery disease. Father had myocardial infarction at a young age. CURRENT MEDICATIONS: Carvedilol 12.5 mg twice a day, cyclobenzaprine 10 mg at bedtime, Cymbalta 60 mg twice a day, subcu Lovenox and Lyrica 200 mg twice a day. REVIEW OF SYSTEMS: GALLERY OR MUSEUM GUIDE: Transient ischemic attack symptoms in the past. No chronic headache. No seizures. RESPIRATORY: As previously mentioned she had history of pulmonary embolism. GI: She has had some nausea but no vomiting. No diarrhea or constipation. : Negative for dysuria or hematuria. PERIPHERAL VASCULAR: She has history of deep venous thrombosis in the past. MUSCULOSKELETAL: She has had some degenerative joint disorder. SKIN: No active dermatological problems. HEMATOLOGY: No history of blood dyscrasia. ENDOCRINE: No thyroid disorder. PAST SURGICAL HISTORY: Hysterectomy. Cholecystectomy. Back surgery. Cervical neck surgery. SOCIAL HISTORY: She is a . She is a stay at home mom. She has no significant alcohol intake. PHYSICAL EXAMINATION: Her blood pressure is 126/89 with heart rate 81, respirations about 18. GENERAL: The patient is a middle aged female who is obese, alert, who is not in any form of distress. Currently chest pain free. HEENT: Unremarkable. NECK: No obvious JVD. No carotid bruit. CHEST: The breath sounds are clear bilaterally. CARDIAC: Heart tones are normal. There is audible gallop. The rhythm is regular. ABDOMEN: Soft with normal bowel sounds. No bruit. EXTREMITIES: No significant edema with good distal pulses. LAB DATA AND DIAGNOSTIC TESTS: The glomerular filtration rate is greater is 60. The liver enzymes are mildly elevated AST 69, ALT 74. CBC showed hemoglobin 14.6 and PLT of 275,000. Serial troponin I less than 0.012 x3 samples. The EKG on 01/06/2019 showed sinus tachycardia with nonspecific ST changes. The subsequent EKG shows normal sinus rhythm. No significant ST-T displacement. IMPRESSION: In essence the patient presented with: 1) Palpitations with EKG changes of sinus tachycardia on initial evaluation. Currently her rhythm is sinus rhythm. She may have had some cardiac arrhythmia particularly some PVC's. Her work up for coronary ischemia is negative at this time. She does have some cardiac risk factors. Her chest pain is somewhat atypical for angina. We are going to go ahead and schedule her for screening coronary calcium score and will proceed depending on the result for further cardiac evaluation. 2) History of hypertension currently controlled. Continue carvedilol. 3) History of pulmonary embolism with negative CT scan of the chest. Will discontinue the Lovenox. Meanwhile continue modifying cardiac risk factors. Recheck the lipids. I will follow her up in the clinic.
[2019-01-09 14:28] VITALS: BP 128/67; PULSE 74; O2SAT 93
--- NOTE | 2019-01-10 11:54 | ECHO ---
Transthoracic echocardiographic examination and color Doppler was done on 01/09/2019. INDICATION: Exertional dyspnea and chest pain. IMPRESSION: 1) NO REGIONAL WALL MOTION ABNORMALITY. ESTIMATED GLOBAL LEFT VENTRICULAR EJECTION FRACTION OF AROUND 60%. 2) MILD MITRAL REGURGITATION. 3) TRACE TRICUSPID REGURGITATION. RIGHT VENTRICULAR SYSTOLIC PRESSURE OF 17 MM OF MERCURY. 4) LEFT VENTRICULAR HYPERTROPHY. The left ventricle is visualized and demonstrated adequate motion of all the segments. Estimated global left ventricular ejection fraction of around 60%. There is mild left ventricular hypertrophy. The mitral valve is seen and this opens adequately. There is mild mitral regurgitation. Left atrium is normal. The aortic valve opens adequately. There is no significant gradient across the left ventricular outflow tract. The right side chambers are normal. There is trace tricuspid regurgitation. The right ventricular systolic pressure of 17 mm of Mercury.
== END 2019-01-09 13:50 | disposition home or self-care (01) ==
LOC: ED 11:21 → MED SURG 14:54
PROVIDERS: ADMIT General Practice; ATTEND General Practice
DX: R06.09 Other forms of dyspnea (principal); R79.89 Other specified abnormal findings of blood chemistry; Z86.711 Personal history of pulmonary embolism; R06.02 Shortness of breath; I10 Essential (primary) hypertension; F41.9 Anxiety disorder, unspecified; G89.29 Other chronic pain; R00.2 Palpitations; G89.4 Chronic pain syndrome
CPT/HCPCS: 36000; 36415; 36600; 71045; 71260; 80053; 82375; 82803; 83735; 83880; 84443; 84484; 85025; 85379; 93005; 93268; 93306; 93970; 96374; 96375; 99285; G0378; J1650; J2405; J3360; A9270-GY

== ENCOUNTER 2021-01-14 13:44 | Emergency (ER) | payer OTHER ==
--- NOTE | 2021-01-14 14:00 | ERPHSYRPT ---
- History of Present Illness Time Seen by Provider: 01/14/21 13:59 Historian: patient Exam Limitations: no limitations Physician History: This is a morbidly obese 50-year-old white female patient of Dr. Del Cid who presents with 6-day history of pain in the left flank that radiates into the groin and into the pelvis on the left side. Initially it felt more as if it was a pressure then it became excruciating pain. Patient has chronic pain issues including neck pain, low back pain, and fibromyalgia. She is on daily Lyrica and oxycodone. She sees Dr. Murphy as her pain specialist in [facility]. She has not seen him in approximately a month. She has appointment to see him this coming . The patient was evaluated for the same issue yesterday (less than 24 hours ago) at [facility] in [facility]. I reviewed the results of the work-up that was performed there. Patient states that she is continuing to have this pain and did not know what to do so she came to this emergency department. Patient drove herself to the hospital. Patient states that she was given a prescription for Toradol and she took that today. She did not think it helped much at all. Patient does have a history of anxiety and panic attacks. Abdominal Pain Onset Location: LLQ, flank Pain Radiation: groin (Left) Severity of Pain-Max: moderate Severity of Pain-Current: moderate Modifying Factors: Improves With: nothing Associated Symptoms: No chest pain, No diaphoresis, No fever/chills, No nausea, No shortness of breath, No vomiting Previous symptoms: same symptoms as today, recently seen, recently treated Allergies/Adverse Reactions: cephalexin Allergy (Verified 01/14/21 13:52) cefuroxime axetil [From Ceftin] Adverse Reaction (Verified 01/14/21 13:52) vancomycin Adverse Reaction (Verified 01/14/21 13:52) Home Medications: Carvedilol 12.5 mg [Coreg 12.5 mg] 1 tab PO HS 07/03/15 [History] Cyclobenzaprine HCl 10 mg [Flexeril 10 MG] 10 mg PO TID 07/31/15 [History] Duloxetine HCl [Cymbalta] 60 mg PO BID 10/22/15 [History] Hydroxyzine HCl 25 mg [Atarax 25 mg] 1 tab PO HS PRN 01/06/19 [History] Pregabalin [Lyrica 100Mg] 200 mg PO BID 01/06/19 [History] Oxycodone / APAP 10/325 mg [Oxycodone-Acetaminophen 10-325] 1 tab PO Q6H PRN PRN 01/14/21 [History] Hx Influenza Vaccination/Date Given: No Hx Pneumococcal Vaccination/Date Given: No Travel Risk - International Travel Have you traveled outside of the country in past 3 weeks: No - Coronavirus Screening Are you exhibiting any of the following symptoms?: No Close contact with a COVID-19 positive Pt in past 14-21 Days: No - Review of Systems Constitutional: No Symptoms Eyes: No Symptoms Ears, Nose, & Throat: No Symptoms Respiratory: No Symptoms Cardiac: No Symptoms Abdominal/Gastrointestinal: Abdominal Pain (Left lower quadrant) Genitourinary Symptoms: Other ( left groin pain) Musculoskeletal: No Symptoms Skin: No Symptoms Neurological: No Symptoms Psychological: No Symptoms Endocrine: No Symptoms Hematologic/Lymphatic: No Symptoms Immunological/Allergic: No Symptoms All Other Systems: Reviewed and Negative - Past Medical History Pertinent Past Medical History: No Neurological History: TIA ENT History: No Pertinent History Cardiac History: Hypertension Respiratory History: No Pertinent History Endocrine Medical History: No Pertinent History Musculoskeletal History: Other GI Medical History: Gallbladder Disease, Ulcer History: No Pertinent History Psycho-Social History: Anxiety, Panic Disorder Female Reproductive Disorders: Fibroids Other Medical History: PT. REPORTS SHE MAY HAVE HAD TIAS, PANIC ATTACKS, HTN; PT. REPORTS SHE HAS CP AT TIME THAT HER PCP THINKS IS RELATED TO HTN; PT. REPORTS HAVING C-SPINE AND L-SPINE FUSION IN 2000 - Past Surgical History Past Surgical History: Yes Neuro Surgical History: No Pertinent History Cardiac: No Pertinent History Respiratory: No Pertinent History Gastrointestinal: No Pertinent History Genitourinary: No Pertinent History Musculoskeletal: Orthopedic Surgery Female Surgical History: Hysterectomy Other Surgical History: Back surgery; Neck fracture repair; tonsillectomy; adenoidnectomy - Social History Smoking Status: Former smoker Exposure to second hand smoke: No Drug Use: none Patient Lives Alone: No - Nursing Vital Signs Nursing Vital Signs: Initial Vital Signs Temperature 96.4 F 01/14/21 13:56 Pulse Rate 86 01/14/21 13:56 Respiratory Rate 18 01/14/21 13:56 Blood Pressure 199/82 01/14/21 13:56 O2 Sat by Pulse Oximetry 93 L 01/14/21 13:56 Pain Scale Pain Intensity 4 - Physical Exam General Appearance: no apparent distress, alert, anxiety, obese Eye Exam: PERRL/EOMI, eyes nml inspection Ears, Nose, Throat Exam: normal ENT inspection, moist mucous membranes Neck Exam: normal inspection, non-tender, supple, full range of motion Respiratory Exam: normal breath sounds, lungs clear, airway intact, No chest tenderness, No respiratory distress Cardiovascular Exam: regular rate/rhythm, normal heart sounds, normal peripheral pulses Gastrointestinal/Abdomen Exam: soft, normal bowel sounds, tenderness (Left lower quadrant), No guarding, No rebound Pelvic Exam: not done Rectal Exam: not done Back Exam: normal inspection, normal range of motion, No CVA tenderness, No vertebral tenderness Extremity Exam: normal inspection, normal range of motion, pelvis stable Neurologic Exam: alert, oriented x 3, cooperative, intern brand II-XII nml as tested, normal mood/affect, nml cerebellar function, nml station & gait, sensation nml Skin Exam: normal color, warm, dry Lymphatic Exam: No adenopathy SpO2 Interpretation: borderline oxygenation O2 Delivery: Room Air - Course Nursing assessment & vital signs reviewed: Yes EKG Interpreted by Me: RATE (74), Sinus Rhythm, NORMAL AXIS, NORMAL INTERVALS, NORMAL QRS, NORMAL ST-T, Other (No acute ischemic changes on today's EKG. provement in today's EKG when compared to EKG dated 01/06/2019) Ordered Tests: Active Orders 24 hr Category Date Time Status UA W/RFX UR CULTURE Stat Lab 01/14/21 14:41 Completed Lab/Rad Data: Laboratory Results 01/14/21 Range/Units 14:41 Urine Color YELLOW (YELLOW) Urine Appearance SLIGHTLY CLOUDY (CLEAR) Urine pH 6.0 (5-6) Ur Specific [place] 1.011 (1.005-1.025) Urine Protein NEGATIVE (Negative) Urine Ketones NEGATIVE (NEGATIVE) Urine Blood SMALL (0-5) David/ul Urine Nitrite NEGATIVE (NEGATIVE) Urine Bilirubin NEGATIVE (NEGATIVE) Urine Urobilinogen NEGATIVE (0-1) mg/dL Ur Leukocyte Esterase NEGATIVE (NEGATIVE) Urine WBC (Auto) 0-2 (0-5) /HPF Urine RBC (Auto) NONE (0-2) /HPF U Epithel Cells (Auto) RARE (FEW) /HPF Urine Bacteria (Auto) NONE (NEGATIVE) /HPF Urine Mucus (Auto) SLIGHT (NEGATIVE) /HPF Urine Culture Reflexed NO (NO) Urine Glucose NEGATIVE (NEGATIVE) mg/dL - Progress Progress: unchanged Counseled pt/family regarding: lab results, diagnosis, need for follow-up - Departure Departure Disposition: Home Clinical Impression: Left lower quadrant abdominal pain, Left groin pain Condition: Stable Critical Care Time: No Referrals: EUSEBIO DEL CID MD [Primary Care Provider] - Follow up/PCP as directed Additional Instructions: Follow-up with your primary care doctor and urology for further evaluation and management. Take all your medications as prescribed. Stop your Toradol and ibuprofen medication while taking your prednisone. Keep your pain specialist appointment. Prescriptions: Prednisone 10 mg [Deltasone 10 mg] 10 mg PO TID #12 tablet
[2021-01-14 14:57] LABS: Appearance SLIGHTLY CLOUDY (CLEAR); Bilirubin NEGATIVE (NEGATIVE); Blood SMALL Ery/ul (0-5); Epithelial Cells RARE /HPF (FEW); Glucose NEGATIVE (NEGATIVE); Ketones NEGATIVE (NEGATIVE); Leukocyte Esterase NEGATIVE (NEGATIVE); Mucus SLIGHT /HPF (NEGATIVE); Nitrite NEGATIVE (NEGATIVE); Protein,Urine Dip NEGATIVE (Negative); Specific Gravity 1.011 (1.005-1.025); Urobilinogen NEGATIVE mg/dL (0-1); WBC 0-2 /HPF (0-5)
[2021-01-14] MEDS ORDERED: Hydromorphone 1 mg/ml Injection IV ONE (15:09)
[2021-01-14] MEDS ORDERED: Zofran 4 MG/2 ML VIAL IV ONE (15:09)
[2021-01-14] MEDS ORDERED: Ativan 2 MG/1 ML VIAL IV ONE (15:10)
[2021-01-14] MEDS ORDERED: Zofran 4 MG/2 ML VIAL ONE (15:11)
[2021-01-14] MEDS ORDERED: Hydromorphone 1 mg/ml Injection ONE (15:12)
[2021-01-14] MEDS ORDERED: Ativan 2 MG/1 ML VIAL ONE (15:12)
[2021-01-14 15:26] VITALS: BP 140/99; PULSE 92; O2SAT 93
== END 2021-01-14 15:44 | disposition home or self-care (01) ==
LOC: ED 13:44
DX: R10.32 Left lower quadrant pain (principal); R10.30 Lower abdominal pain, unspecified; I10 Essential (primary) hypertension; F41.9 Anxiety disorder, unspecified; Z79.891 Long term (current) use of opiate analgesic
CPT/HCPCS: 36000; 81001; 93005; 96374; 96375; 99284; J1170; J2060; J2405